=== PATIENT | female | born 1995 | race Caucasian/White ===

== ENCOUNTER 2020-08-03 16:43 | Emergency (ER) | payer OTHER, BC, SELFPAY ==
[2020-08-03 18:16] VITALS: BP 110/72; PULSE 69; RESP 16; TEMP 37; O2SAT 100; BMI 18.6
[2020-08-03] MEDS: Rabies Vaccine (PCEC)/PF 1 ML VIAL IM (19:14)
[2020-08-03] MEDS: Rabies Immune Globulin/PF 1,500 UNIT/5 ML VIAL 952.54 UNIT IM (19:15)
[2020-08-03] MEDS: Amoxicillin/Potassium Clav 875 MG TABLET PO (19:17)
--- NOTE | 2020-08-03 19:49 | ED_ITS ---
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 Tetanus vaccination within the last 1-2 years. MD complaint: animal bite Onset (ago): minute(s) Animal: cat Description of animal: household pet, immunizations unknown and appeared ill Mechanism: bite and scratch Location - Extremities: right: forearm Context: other (PET was being triaged) Treatments prior to arrival: irrigation and other (Site irrigated and cleaned with antiseptic and topical antibiotic ointment) Related Data Patient tetanus UTD: Yes Previous Rx's Medication Instructions Recorded amoxicillin-pot clavulanate 1 tab PO BID 10 Days #20 tab 08/03/20 [Augmentin] ibuprofen 800 mg PO Q8H PRN #30 tab 08/03/20 Allergies Allergy/AdvReac Type Severity Reaction Status Date / Time No Known Allergies Allergy Verified 08/03/20 18:24 Review of Systems Review of Systems: Constitutional: No Weight loss, No Fever, No Chills, No Night Sweats, No Fatigue, No Malaise ENT/Mouth: No Hearing loss, No Ear Pain, No Nasal Congestion, No Sinus Pain, No Hoarseness, No sore throat, No Rhinorrhea, No Swallowing Difficulty Eyes: No Eye Pain, No Swelling, No Redness, No Foreign Body, No Discharge, No Vision Changes Cardiovascular: No Chest Pain, No SOB, No Dyspnea on Exertion, No Orthopnea, No Edema, No Palpitations Respiratory: No Cough, No Sputum, No Wheezing, No Smoke Exposure, No Dyspnea. Gastrointestinal: No Nausea, No Vomiting, No Diarrhea, No Constipation, No abdominal Pain, No Hematochezia, No Melena Genitourinary: no irregular bleeding, No Dysuria, No Urinary Frequency, No Hematuria, No Urinary Incontinence, No Urgency, No Flank Pain, No Urinary Flow Changes, No Hesitancy Musculoskeletal: No joint pain, No Myalgias, No Joint Swelling Skin: No Skin Lesions, No rash Neuro: No Weakness, No Numbness, No Paresthesias, No Loss of Consciousness, No Dizziness, No Headache Psych: No Anxiety/Panic, No Depression, No SI/HI/AH/VH, No Social Issues Heme/Lymph: No Bruising, No Bleeding,No Lymphadenopathy Endocrine: No Polyuria, No Polydipsia, No Temperature Intolerance [facility] Social History Social History Advance Directives: No Advance Directives Information Provided: Yes Physical Exam Vital Signs: Vital Signs: Last Vital Signs Temp 98.6 F 08/03/20 18:16 Pulse 69 08/03/20 18:16 Resp 16 08/03/20 18:16 BP 110/72 08/03/20 18:16 Pulse Ox 100 08/03/20 18:16 Body Mass Index 18.6 Reviewed Const: General: cooperative and healthy appearing; No acute distress or intoxicated appearing Nutritional Appearance: average body habitus Orientation/consciousness: patient oriented x3 HENMT: Head: Yes normal to inspection Ears: hearing grossly normal bilaterally Eyes: General: appearance normal, both eyes and all related structures Visual Chacon: normal visual chacon by confrontation Neck: Neck: Yes normal visual inspection and No tender Thyroid: Thyroid normal Chest: Chest palpation & inspection: normal inspection of the chest Resp: Effort & Inspection: normal respiratory effort Cardio: Jugular venous distension: no JVD : General: Yes no CVA tenderness Back/Spine/Pelvis: Back: no CVA tenderness Skin: General skin exam: no rashes or lesions noted Neuro: General: patient oriented x3 Extrem: Other: General: Yes normal to inspection Elbow/forearm/wrist images: 1. 2. 3. 4. Course Course Course Narrative: Up-to-date on tetanus vaccination. Given rabies imm unoglobulin/vaccination. Given dose of Augmentin here. Set up with outpatient short-stay surgery for duration of the vaccinations. Will discharge with Augmentin. Clear discharge, follow-up, return instructions provided including follow-up with occupational health. Discharge Plan Discharge Clinical Impression: Cat bite Qualifiers: Encounter type: initial encounter Qualified Code(s): W55.01XA - Bitten by cat, initial encounter Patient Disposition: Home, Self-Care Instructions: Rabies Vaccine (By injection), Rabies Immune Globulin (By injection), Animal Bite (ED), Rabies (ED) Additional Instructions: Please follow the remainder of the rabies vaccination schedule and schedule appointments at the medical short-stay for the duration of the vaccinations as outlined Take your antibiotic as prescribed Wound care as instructed Return if any concerns or worsening symptoms otherwise follow up with occupational health as discussed Thank you Prescriptions: New amoxicillin-pot clavulanate [Augmentin] 875-125 mg tablet 1 tab PO BID 10 Days Qty: 20 RF: 0 ibuprofen 800 mg tablet 800 mg PO Q8H PRN (Reason: pain) Qty: 30 RF: 0 Referrals: Bryon Ordonez MD [Primary Care Provider] - 1 week
--- NOTE | 2020-08-03 20:08 | PC.NURSE ---
PT PRESCRIPTION FAXED TO [facility]. ANIMAL BITE REPORT ALREADY FILLED AND FAXED BY [facility].
--- NOTE | 2020-08-03 20:45 | PC.NURSE ---
PT DOSE OF IMMUNOGLOBULN 5ML TO WOUND AREA PER TEMPLATE CHECKER LEXA.
== END 2020-08-03 20:51 | disposition home or self-care (01) ==
PROVIDERS: Emergency Provider Internal Medicine; PCP Internal Medicine
DX: S51.851A Open bite of right forearm, initial encounter (principal); S50.811A Abrasion of right forearm, initial encounter; M79.631 Pain in right forearm; W55.01XA Bitten by cat, initial encounter; Y93.9 Activity, unspecified; Y92.238 Other place in hospital as the place of occurrence of the external cause; Y99.0 Civilian activity done for income or pay; Z23 Encounter for immunization
CPT/HCPCS: 90375; 90471; 90675; 96372; 99284

== ENCOUNTER 2020-08-06 14:06 | Outpatient (REF) | payer BC, OTHER, SELFPAY | END 2020-08-06 14:07 | disposition home or self-care (01) | LOC: HO.MDS 14:06 | PROVIDERS: PCP Internal Medicine; Visit Provider Nurse Practitioner Primary Care | DX: Z29.14 Encounter for prophylactic rabies immune globulin (principal); S51.851D Open bite of right forearm, subsequent encounter; W55.01XD Bitten by cat, subsequent encounter; Z20.3 Contact with and (suspected) exposure to rabies | CPT/HCPCS: 90675; 96372 ==

== ENCOUNTER 2020-08-10 | Outpatient (REF) | payer BC, OTHER, SELFPAY | END 2020-08-10 00:01 | disposition home or self-care (01) | LOC: HO.MDS | PROVIDERS: Visit Provider Nurse Practitioner Primary Care | DX: Z29.14 Encounter for prophylactic rabies immune globulin (principal); S51.851D Open bite of right forearm, subsequent encounter; W55.01XD Bitten by cat, subsequent encounter; Z20.3 Contact with and (suspected) exposure to rabies | CPT/HCPCS: 90471; 90675 ==

== ENCOUNTER 2020-08-17 10:00 | Outpatient (REF) | payer BC, OTHER, SELFPAY | END 2020-08-17 10:01 | disposition home or self-care (01) | LOC: HO.MDS 10:00 | PROVIDERS: Visit Provider Nurse Practitioner Primary Care | DX: Z29.14 Encounter for prophylactic rabies immune globulin (principal); S51.851D Open bite of right forearm, subsequent encounter; W55.01XD Bitten by cat, subsequent encounter; Z20.3 Contact with and (suspected) exposure to rabies | CPT/HCPCS: 90471; 90675 ==